=== PATIENT | female | born 1965 | race Caucasian/White ===

== ENCOUNTER 2019-03-19 11:10 | Emergency (ER) | payer OTHER, SELFPAY ==
[2019-03-19 11:19] VITALS: BP 127/72; PULSE 78; RESP 13; TEMP 36.4; O2SAT 100
--- NOTE | 2019-03-19 11:22 | PC.NURSE ---
Patient reports ongoing chronic issues and pain with legs including 22 surgeries and multiple knee replacements/infection/hardware repairs. Patient reports pain and swelling to right leg/ankle for the last two weeks, PCP is aware.
--- NOTE | 2019-03-19 11:25 | DI.US.S_ITS ---
PROCEDURE: US PERIPH VENOUS LOW EXTREM RT INDICATIONS: PAIN, SWELLING, REDNESS TECHNIQUE: Real-time imaging, as well as color and pulse Doppler interrogation, were performed of the lower extremity deep veins from the inguinal ligament to the popliteal fossa. COMPARISON: None. FINDINGS: The common femoral, femoral and popliteal veins are normally compressible, and free of intraluminal thrombus. Color and pulse Doppler demonstrate normal phasic intraluminal flow. There is normal augmentation response to distal compression maneuver. Incidental note of prominent right inguinal lymph nodes with one demonstrating borderline uniform thickening of the cortex. These are favored to represent reactive lymph nodes. IMPRESSION: Negative for deep venous thrombosis of the right lower extremity. Incidental note of mildly prominent inguinal lymph nodes likely reactive in etiology. Recommend clinical followup with repeat imaging as needed. Dictated by: Kumar Mosqueda M.D. on 03/19/2019 at 12:09 Approved by: Kumar Mosqueda M.D. on 03/19/2019 at 12:10
--- NOTE | 2019-03-19 11:55 | ED.LOWEXIN ---
HPI - Extremity Injury (Lower) General Chief Complaint: Extremity Injury, Lower Stated Complaint: right leg/side swollen, can't walk Time Seen by Provider: 03/19/19 11:13 Source: patient Mode of arrival: ambulatory Limitations: no limitations History of Present Illness HPI Narrative: 53-year-old female nonsmoker with extensive orthopedic history resulting from sports injuries and 20 subsequent lower extremity surgeries presents with severe right lower extremity pain in the absence of any injury. She states that she has significant difficulty with walking secondary to pain. She admits to some redness and swelling of her right lateral foot and states that the rest of her leg feels swollen as well. She denies any chest pain or shortness of breath. She is not dizzy nor weak or lightheaded. She denies fever or chills. She states that she is taking indomethacin and has been diagnosed with gout in the past. Her pain is become significant over past few days Severity: moderate Relieving factors: nothing Exacerbating factors: weight bearing, movement and palpation Associated symptoms: swelling and able to partially bear weight Other symptoms: none Related Data Home Medications Medication Instructions Recorded Confirmed indomethacin 25 mg PO QID PRN 03/19/19 03/19/19 levothyroxine 200 mcg PO DAILY 03/19/19 03/19/19 Previous Rx's Medication Instructions Recorded doxycycline monohydrate 100 mg PO BID 10 Days #20 cap 03/19/19 hydrocodone-acetaminophen 1 tab PO Q4-6H PRN #10 tab 03/19/19 Allergies Allergy/AdvReac Type Severity Reaction Status Date / Time No Known Drug Allergies Allergy Verified 03/19/19 12:09 Review of Systems Constitutional Denies chills, Denies fever(s), Denies lethargy and Denies weakness Eyes Denies change in vision, Denies eye discharge, Denies irritation and Denies loss of vision ENT Ears, Nose, Mouth, and Throat: Denies change in voice, Denies neck pain and Denies sore throat Cardiovascular Denies chest pain, Denies irregular heart rhythm, Denies lightheadedness, Denies palpitations, Denies dyspnea, Denies dyspnea on exertion and Denies orthopnea Respiratory Denies cough, Denies dyspnea, Denies dyspnea on exertion and Denies wheezing Gastrointestinal Gastrointestinal: Denies abdominal pain, Denies change in bowel habits, Denies diarrhea, Denies nausea and Denies vomiting Genitourinary Denies hematuria, Denies flank pain, Denies urinary incontinence and Denies urinary urgency Musculoskeletal Reports limited range of motion and Denies neck pain Integumentary/Breasts Denies pruritus, Reports erythema, Denies rash, Reports skin swelling and Denies wounds Neurologic Denies confusion, Denies loss of vision and Denies weakness Psychiatric Denies anxiety, Denies confusion, Denies depression, Denies homicidal ideation and Denies suicidal ideation Endocrine Denies palpitations Hematologic/Lymphatic Denies easy bruising Allergic/Immunologic Denies wheezing [facility] Medical History (Updated 03/19/19 @ 12:34 by Ryan Morrison DO) Ankylosing spondylitis (Acute) Sarcoid arthritis (Acute) Social History Smoking Status: Never smoker Social History Smoking Status: Never smoker Exam Narrative Exam Narrative: GENERAL: 53-year-old female appears older than stated age, clearly uncomfortable but nontoxic HEAD: Atraumatic. Normocephalic. No temporal or scalp tenderness. EYES: Pupils equal round and reactive. Extraocular motions intact. No scleral icterus. No injection or drainage. ENT: Nose without bleeding, purulent drainage or septal hematoma. Throat without erythema, tonsillar hypertrophy or exudate. Uvula midline. Airway patent. NECK: Trachea midline. No JVD or lymphadenopathy. Supple, nontender, no meningeal signs. CARDIOVASCULAR: Regular rate and rhythm without murmurs, gallops, or rubs. RESPIRATORY: Clear to auscultation. Breath sounds equal bilaterally. No wheezes, rales, or rhonchi. GASTROINTESTINAL: Abdomen soft, non-tender, nondistended. No hepato-splenomegaly, or palpable masses. No guarding. EXTREMITIES: No clubbing, cyanosis, or edema. No joint tenderness, effusion, or edema noted. BACK: Nontender without deformity or crepitance. No flank tenderness. NEURO: AOx3. SKIN: No rash or erythema. Initial Vital Signs Initial Vital Signs: Vital Signs Temperature 97.6 F 03/19/19 11:19 Pulse Rate 78 03/19/19 11:19 Respiratory Rate 13 03/19/19 11:19 Blood Pressure 127/72 03/19/19 11:19 Pulse Oximetry 100 03/19/19 11:19 Course Orders Ordered: ED Orders 03/19/19 11:25 US periph venous low extrem rt Stat 07/29/19 11:35 Basic Metabolic Panel Stat C-Reactive Protein Quant Stat Complete Blood Count AUTO DIFF Stat Erythrocyte Sedimentation Rate Stat Uric Acid Stat Vital Signs - 8 hr 03/19/19 11:19 03/19/19 12:50 Temperature 97.6 F Pulse Rate 78 66 Respiratory Rate 13 16 Blood Pressure 127/72 110/68 Pulse Oximetry 100 98 MDM - Extremity Injury (Lower) Lab Data Result diagrams: 03/19/19 11:35 03/19/19 11:35 Lab Results 03/19/19 03/19/19 Range/Units 11:35 11:35 WBC 9.8 (4.5-11.0) X10^3/uL RBC 4.64 (4.0-5.2) X10^6/uL Hgb 12.8 (12.0-16.0) g/dL Hct 38.3 (36-46) % MCV 82.5 (80-100) fL MCH 27.6 (26-34) PG MCHC 33.4 (30-36) % RDW 13.7 (11.6-14.8) % Plt Count 505 H (150-400) X10^3/uL Neut % (Auto) 69.8 (50-75) % Lymph % (Auto) 21.3 L (25-40) % [place] % (Auto) 7.7 (3-14) % Eos % (Auto) 0.9 L (2-4) % Baso % (Auto) 0.3 (0-2) % Neut # (Auto) 6800 (0428-4187) /uL Lymph # (Auto) 2100 (8146-7873) /uL [place] # (Auto) 700 (0-900) /uL Eos # (Auto) 100 (0-450) /uL Baso # (Auto) 0 (0-100) /uL ESR 52 H (0-20) MM/HR Sodium 141 (137-145) mmol/L Potassium 3.7 (3.4-5.1) mmol/L Chloride 104 (98-107) mmol/L Carbon Dioxide 27 (22-32) mmol/L BUN 13 (7-17) mg/dL Creatinine 0.50 L (0.52-1.04) mg/dL Estimated GFR > 60.0 (>60) mL/min BUN/Creatinine Ratio 26.0 H (6-22) Glucose 101 H (70-100) mg/dL Uric Acid 5.0 (2.5-6.2) mg/dL Calcium 10.0 (8.4-10.2) mg/dL C-Reactive Protein 8.7 H (<1.0) mg/dL Imaging Data Venous US: Radiologist's impression: [address] [address] Ultrasound Report Signed Patient: Beverly HunterMR#: [id number] : 1965Acct:[id number] Age/Sex: 53 / FDate of Service: 03/19/19 Loc: ED Accession Number: [id number] Procedure: US periph venous low extrem rt Ordering Provider: Ryan Morrison D.O. PROCEDURE: US PERIPH VENOUS LOW EXTREM RT INDICATIONS: PAIN, SWELLING, REDNESS TECHNIQUE: Real-time imaging, as well as color and pulse Doppler interrogation, were performed of the lower extremity deep veins from the inguinal ligament to the popliteal fossa. COMPARISON: None. FINDINGS: The common femoral, femoral and popliteal veins are normally compressible, and free of intraluminal thrombus. Color and pulse Doppler demonstrate normal phasic intraluminal flow. There is normal augmentation response to distal compression maneuver. Incidental note of prominent right inguinal lymph nodes with one demonstrating borderline uniform thickening of the cortex. These are favored to represent reactive lymph nodes. IMPRESSION: Negative for deep venous thrombosis of the right lower extremity. Incidental note of mildly prominent inguinal lymph nodes likely reactive in etiology. Recommend clinical followup with repeat imaging as needed. Dictated by: Kumar Mosqueda M.D. on 03/19/2019 at 12:09 Approved by: Kumar Mosqueda M.D. on 03/19/2019 at 12:10 [facility] Narrative Medical decision making narrative: Multiple etiologies for patient's symptoms considered including: [DVT versus cellulitis versus chronic pain versus gout versus other] Patient's symptoms improved or duration of stay with above-stated therapies. Findings and discharge diagnosis discussed with patient/family followed by verbalization of understanding Return precautions discussed with patient/family whom verbalize understanding. Discharge Plan Departure Patient Disposition: Home Clinical Impression: Acute leg pain Qualifiers: Laterality: right Qualified Code(s): M79.604 - Pain in right leg Discharge Date/Time: 03/19/19 12:52 Interventions: ED Discharge Assessment Last Done: 03/19/19 12:50 Instructions: DI for Leg Pain Activity Restrictions/Additional Instructions: *You have been diagnosed with [acute right leg pain. Ultrasound did not show any evidence of clot. On exam there is redness and warmth of her right foot and we will treat for cellulitis] *What to do: *Take medications as directed *Follow up with your primary care provider in 2-3 days, call for an appointment. Let them know you were seen in the Emergency Department and that we ask that you be seen in follow up *Return to ER if you should have any new, worsening or concerning symptoms, such as [worsening pain, redness or swelling] Prescriptions: New hydrocodone-acetaminophen 5-325 mg tablet 1 tab PO Q4-6H PRN (Reason: pain) Qty: 10 RF: 0 doxycycline monohydrate 100 mg capsule 100 mg PO BID 10 Days Qty: 20 RF: 0 No Action indomethacin 25 mg Capsule 25 mg PO QID PRN (Reason: pain) RF: 0 levothyroxine 200 mcg Tablet 200 mcg PO DAILY RF: 0 Referrals: Agusto Renteria ARNP [Non-Staff] - Stand Alone Forms: Work Release Note
--- NOTE | 2019-03-19 11:59 | ED_ITS ---
HPI - Extremity Injury (Lower) General Chief Complaint: Extremity Injury, Lower Stated Complaint: right leg/side swollen, can't walk Time Seen by Provider: 03/19/19 11:13 Source: patient Mode of arrival: ambulatory Limitations: no limitations History of Present Illness HPI Narrative: 53-year-old female nonsmoker with extensive orthopedic history resulting from sports injuries and 20 subsequent lower extremity surgeries presents with severe right lower extremity pain in the absence of any injury. She states that she has significant difficulty with walking secondary to pain. She admits to some redness and swelling of her right lateral foot and states that the rest of her leg feels swollen as well. She denies any chest pain or shortness of breath. She is not dizzy nor weak or lightheaded. She denies feve r or chills. She states that she is taking indomethacin and has been diagnosed with gout in the past. Her pain is become significant over past few days Severity: moderate Relieving factors: nothing Exacerbating factors: weight bearing, movement and palpation Associated symptoms: swelling and able to partially bear weight Other symptoms: none Related Data Home Medications Medication Instructions Recorded Confirmed indomethacin 25 mg PO QID PRN 03/19/19 03/19/19 levothyroxine 200 mcg PO DAILY 03/19/19 03/19/19 Previous Rx's Medication Instructions Recorded doxycycline monohydrate 100 mg PO BID 10 Days #20 cap 03/19/19 hydrocodone-acetaminophen 1 tab PO Q4-6H PRN #10 tab 03/19/19 Allergies Allergy/AdvReac Type Severity Reaction Status Date / Time No Known Drug Allergies Allergy Verified 03/19/19 12:09 Review of Systems Constitutional Denies chills, Denies fever(s), Denies lethargy and Denies weakness Eyes Denies change in vision, Denies eye discharge, Denies irritation and Denies loss of vision ENT Ears, Nose, Mouth, and Throat: Denies change in voice, Denies neck pain and Denies sore throat Cardiovascular Denies chest pain, Denies irregular heart rhythm, Denies lightheadedness, Denies palpitations, Denies dyspnea, Denies dyspnea on exertion and Denies orthopnea Respiratory Denies cough, Denies dyspnea, Denies dyspnea on exertion and Denies wheezing Gastrointestinal Gastrointestinal: Denies abdominal pain, Denies change in bowel habits, Denies diarrhea, Denies nausea and Denies vomiting Genitourinary Denies hematuria, Denies flank pain, Denies urinary incontinence and Denies urinary urgency Musculoskeletal Reports limited range of motion and Denies neck pain Integumentary/Breasts Denies pruritus, Reports erythema, Denies rash, Reports skin swelling and Denies wounds Neurologic Denies confusion, Denies loss of vision and Denies weakness Psychiatric Denies anxiety, Denies confusion, Denies depression, Denies homicidal ideation and Denies suicidal ideation Endocrine Denies palpitations Hematologic/Lymphatic Denies easy bruising Allergic/Immunologic Denies wheezing [facility] Medical History (Updated 03/19/19 @ 12:34 by Ryan Morrison DO) Ankylosing spondylitis (Acute) Sarcoid arthritis (Acute) Social History Smoking Status: Never smoker Social History Smoking Status: Never smoker Exam Narrative Exam Narrative: GENERAL: 53-year-old female appears older than stated age, clearly uncomfortable but nontoxic HEAD: Atraumatic. Normocephalic. No temporal or scalp tenderness. EYES: Pupils equal round and reactive. Extraocular motions intact. No scleral icterus. No injection or drainage. ENT: Nose without bleeding, purulent drainage or septal hematoma. Throat without erythema, tonsillar hypertrophy or exudate. Uvula midline. Airway patent. NECK: Trachea midline. No JVD or lymphadenopathy. Supple, nontender, no menin geal signs. CARDIOVASCULAR: Regular rate and rhythm without murmurs, gallops, or rubs. RESPIRATORY: Clear to auscultation. Breath sounds equal bilaterally. No wheezes, rales, or rhonchi. GASTROINTESTINAL: Abdomen soft, non-tender, nondistended. No hepato- splenomegaly, or palpable masses. No guarding. EXTREMITIES: No clubbing, cyanosis, or edema. No joint tenderness, effusion, or edema noted. BACK: Nontender without deformity or crepitance. No flank tenderness. NEURO: AOx3. SKIN: No rash or erythema. Initial Vital Signs Initial Vital Signs: Vital Signs Temperature 97.6 F 03/19/19 11:19 Pulse Rate 78 03/19/19 11:19 Respiratory Rate 13 03/19/19 11:19 Blood Pressure 127/72 03/19/19 11:19 Pulse Oximetry 100 03/19/19 11:19 Course Orders Ordered: ED Orders 03/19/19 11:25 US periph venous low extrem rt Stat 03/19/19 11:35 Basic Metabolic Panel Stat C-Reactive Protein Quant Stat Complete Blood Count AUTO DIFF Stat Erythrocyte Sedimentation Rate Stat Uric Acid Stat Vital Signs - 8 hr 03/19/19 11:19 03/19/19 12:50 Temperature 97.6 F Pulse Rate 78 66 Respiratory Rate 13 16 Blood Pressure 127/72 110/68 Pulse Oximetry 100 98 MDM - Extremity Injury (Lower) Lab Data Result diagrams: 03/19/19 11:35 03/19/19 11:35 Lab Results 03/19/19 03/19/19 Range/Units 11:35 11:35 WBC 9.8 (4.5-11.0) X10^3/uL RBC 4.64 (4.0-5.2) X10^6/uL Hgb 12.8 (12.0-16.0) g/dL Hct 38.3 (36-46) % MCV 82.5 (80-100) fL MCH 27.6 (26-34) PG MCHC 33.4 (30-36) % RDW 13.7 (11.6-14.8) % Plt Count 505 H (150-400) X10^3/uL Neut % (Auto) 69.8 (50-75) % Lymph % (Auto) 21.3 L (25-40) % [place] % (Auto) 7.7 (3-14) % Eos % (Auto) 0.9 L (2-4) % Baso % (Auto) 0.3 (0-2) % Neut # (Auto) 6800 (0533-9558) /uL Lymph # (Auto) 2100 (0010-6405) /uL [place] # (Auto) 700 (0-900) /uL Eos # (Auto) 100 (0-450) /uL Baso # (Auto) 0 (0-100) /uL ESR 52 H (0-20) MM/HR Sodium 141 (137-145) mmol/L Potassium 3.7 (3.4-5.1) mmol/L Chloride 104 (98-107) mmol/L Carbon Dioxide 27 (22-32) mmol/L BUN 13 (7-17) mg/dL Creatinine 0.50 L (0.52-1.04) mg/dL Estimated GFR > 60.0 (>60) mL/min BUN/Creatinine Ratio 26.0 H (6-22) Glucose 101 H (70-100) mg/dL Uric Acid 5.0 (2.5-6.2) mg/dL Calcium 10.0 (8.4-10.2) mg/dL C-Reactive Protein 8.7 H (<1.0) mg/dL Imaging Data Venous US: Radiologist's impression: [address] [address] Ultrasound Report Signed Patient: Beverly HunterMR#: [id number] : 1965Acct:[id number] Age/Sex: 53 / FDate of Service: 03/19/19 Loc: ED Accession Number: [id number] Procedure: US periph venous low extrem rt Ordering Provider: Ryan Morrison D.O. PROCEDURE: US PERIPH VENOUS LOW EXTREM RT INDICATIONS: PAIN, SWELLING, REDNESS TECHNIQUE: Real-time imaging, as well as color and pulse Doppler interrogation, were performed of the lower extremity deep veins from the inguinal ligament to the popliteal fossa. COMPARISON: None. FINDINGS: The common femoral, femoral and popliteal veins are normally [place] sible, and free of intraluminal thrombus. Color and pulse Doppler demonstrate normal phasic intraluminal flow. There is normal augmentation response to distal compression maneuver. Incidental note of prominent right inguinal lymph nodes with one demonstrating borderline uniform thickening of the cortex. These are favored to represent reactive lymph nodes. IMPRESSION: Negative for deep venous thrombosis of the right lower extremity. Incidental note of mildly prominent inguinal lymph nodes likely reactive in etiology. Recommend clinical followup with repeat imaging as needed. Dictated by: Kumar Mosqueda M.D. on 03/19/2019 at 12:09 Approved by: Kumar Mosqueda M.D. on 03/19/2019 at 12:10 [facility] Narrative Medical decision making narrative: Multiple etiologies for patient's symptoms considered including: [DVT versus cellulitis versus chronic pain versus gout versus other] Patient's symptoms improved or duration of stay with above-stated therapies. Findings and discharge diagnosis discussed with patient/family followed by verbalization of understanding Return precautions discussed with patient/family whom verbalize understanding. Discharge Plan Departure Patient Disposition: Home Clinical Impression: Acute leg pain Qualifiers: Laterality: right Qualified Code(s): M79.604 - Pain in right leg Discharge Date/Time: 03/19/19 12:52 Interventions: ED Discharge Assessment Last Done: 03/19/19 12:50 Instructions: DI for Leg Pain Activity Restrictions/Additional Instructions: *You have been diagnosed with [acute right leg pain. Ultrasound did not show any evidence of clot. On exam there is redness and warmth of her right foot and we will treat for cellulitis] *What to do: *Take medications as directed *Follow up with your primary care provider in 2-3 days, call for an appointment. Let them know you were seen in the Emergency Department and that we ask that you be seen in follow up *Return to ER if you should have any new, worsening or concerning symptoms, such as [worsening pain, redness or swelling] Prescriptions: New hydrocodone-acetaminophen 5-325 mg tablet 1 tab PO Q4-6H PRN (Reason: pain) Qty: 10 RF: 0 doxycycline monohydrate 100 mg capsule 100 mg PO BID 10 Days Qty: 20 RF: 0 No Action indomethacin 25 mg Capsule 25 mg PO QID PRN (Reason: pain) RF: 0 levothyroxine 200 mcg Tablet 200 mcg PO DAILY RF: 0 Referrals: Agusto Renteria ARNP [Non-Staff] - Stand Alone Forms: Work Release Note
[2019-03-19 12:00] LABS: Add Manual Diff / Slide Review NO; Basophils Absolute Auto 0 /uL (0-100); Basophils Percent Auto 0.3 % (0-2); Eosinophils Absolute Auto 100 /uL (0-450); Eosinophils Percent Auto 0.9 % (2-4); Hematocrit 38.3 % (36-46); Hemoglobin 12.8 g/dL (12.0-16.0); Lymphocytes Absolute Auto 2100 /uL (1100-4500); Lymphocytes Percent Auto 21.3 % (25-40); Mean Corpuscular HGB Conc 33.4 % (30-36); Mean Corpuscular Hemoglobin 27.6 PG (26-34); Mean Corpuscular Volume 82.5 fL (80-100); Monocytes Absolute Auto 700 /uL (0-900); Monocytes Percent Auto 7.7 % (3-14); Neutrophils Absolute Auto 6800 /uL (1500-7000); Neutrophils Percent Auto 69.8 % (50-75); Platelet Count 505 X10^3/uL (150-400); Red Blood Cell Count 4.64 X10^6/uL (4.0-5.2); Red Cell Distribution Width 13.7 % (11.6-14.8); White Blood Cell Count 9.8 X10^3/uL (4.5-11.0)
[2019-03-19 12:11] LABS: Blood Urea Nitrogen 13 mg/dL (7-17); C-Reactive Protein Quant 8.7 mg/dL (<1.0); Carbon Dioxide 27 mmol/L (22-32); Chloride 104 mmol/L (98-107); Estimated Glomerular Filt Rate > 60.0 mL/min (>60); Glucose 101 mg/dL (70-100); HEMOLYSIS < 15 (0-50); Potassium 3.7 mmol/L (3.4-5.1); Sodium 141 mmol/L (137-145)
[2019-03-19 12:27] LABS: Erythrocyte Sedimentation Rate 52 MM/HR (0-20)
[2019-03-19 12:50] VITALS: BP 110/68; PULSE 66; RESP 16; O2SAT 98
== END 2019-03-19 12:52 | disposition home or self-care (01) ==
PROVIDERS: Emergency Provider Emergency Medicine; PCP Family Medicine
DX: M79.604 Pain in right leg (principal)
CPT/HCPCS: 36415; 80048; 84550; 85025; 85651; 86140; 93971; 99282; 99284